=== PATIENT | female | born 1965 | race American Indian/Alaskan Native ===

== ENCOUNTER 2016-09-04 11:44 | Emergency (ER) | payer SELFPAY ==
[2016-09-04] MEDS ORDERED: DUONEB 0.5 MG-3 MG/3 ML SOLN IH ONE ×3 (11:58→13:02)
[2016-09-04] MEDS ORDERED: DECADRON IM ONE (13:02)
[2016-09-04] MEDS ORDERED: PROVENTIL IH ONE (13:02)
--- NOTE | 2016-09-04 13:08 | Emergency Department Report ---
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 Patient states she has history of asthma but has not used inhaler in over a year. patient states she has started a new job where she has to work around a lot of boxes and dust which exacerbates her asthma. Patient states she was at work today around a lot of dust when symptoms started. Patient also states she has a dry cough x1 day with wheezing. Patient is stable, neurologically intact and in no acute distress. MD Complaint: "asthma attack", shortness of breath, wheezing -: Gradual Asthma History: other (history of asthma with albuterol usage) Severity: mild Context: ran out of meds, medication non-compliance, allergen exposure Associated Symptoms: dry cough. denies: productive cough, fever, chest pain, leg edema, syncope Treatments Prior to Arrival: other (patient recieved breathing treatment while in triage) - Related Data Previous Rx's Medication Instructions Recorded Last Taken Type Cyclobenzaprine [Flexeril 10mg] 10 mg PO TID PRN #14 tablet 01/07/14 Unknown Rx HYDROcodone/APAP 7.5-325 [[place] 1 each PO Q6HR PRN #14 tablet 01/07/14 Unknown Rx 7.5-325 mg TAB] Ibuprofen [Motrin] 800 mg PO Q8H PRN #20 tablet 01/07/14 Unknown Rx Amoxicillin/K Clav Tab [Augmentin 1 tab PO Q12HR #20 tab 02/27/15 Unknown Rx 875 mg] Fluticasone [Flonase] 2 spray NS QDAY #01 bottle 02/27/15 Unknown Rx Hyoscyamine Subl [Levsin Sl 0.125 0.125 mg SL Q6HR PRN #20 tab 02/27/15 Unknown Rx TAB] Loratadine [Claritin] 10 mg PO DAILY #30 tablet 02/27/15 Unknown Rx Promethazine /Codeine 5 ml PO Q6H PRN #150 ml 02/27/15 Unknown Rx [Phenergan/Codeine 6.25-10 mg/5 ml] ALBUTEROL Inhaler [ProAir HFA 1 puff IH QID PRN #1 inha 09/04/16 Unknown Rx Inhaler] Allergies Allergy/AdvReac Type Severity Reaction Status Date / Time No Known Allergies Allergy Unverified 01/07/14 10:30 ED Review of Systems ROS: Stated complaint: ALLERGIC REACTION Other details as noted in HPI Constitutional: denies: chills, fever Eyes: denies: eye pain, eye discharge, vision change ENT: denies: ear pain, throat pain Respiratory: cough, shortness of breath, wheezing Cardiovascular: denies: chest pain, palpitations Endocrine: no symptoms reported Gastrointestinal: denies: abdominal pain, nausea, diarrhea Genitourinary: denies: urgency, dysuria, discharge Musculoskeletal: denies: back pain, joint swelling, arthralgia Skin: denies: rash, lesions Neurological: denies: headache, weakness, paresthesias Psychiatric: denies: anxiety, depression Hematological/Lymphatic: denies: easy bleeding, easy bruising ED Past Medical Hx - Past Medical History Hx Asthma: Yes Additional medical history: Vaginal delivery x 2 - Social History Smoking Status: Current Some Day Smoker Substance Use Type: Alcohol - Medications Home Medications: Home Medications Medication Instructions Recorded Confirmed Last Taken Type Cyclobenzaprine [Flexeril 10mg] 10 mg PO TID PRN #14 tablet 01/07/14 Unknown Rx HYDROcodone/APAP 7.5-325 [[place] 1 each PO Q6HR PRN #14 tablet 01/07/14 Unknown Rx 7.5-325 mg TAB] Ibuprofen [Motrin] 800 mg PO Q8H PRN #20 tablet 01/07/14 Unknown Rx Amoxicillin/K Clav Tab [Augmentin 1 tab PO Q12HR #20 tab 02/27/15 Unknown Rx 875 mg] Fluticasone [Flonase] 2 spray NS QDAY #01 bottle 02/27/15 Unknown Rx Hyoscyamine Subl [Levsin Sl 0.125 0.125 mg SL Q6HR PRN #20 tab 02/27/15 Unknown Rx TAB] Loratadine [Claritin] 10 mg PO DAILY #30 tablet 02/27/15 Unknown Rx Promethazine /Codeine 5 ml PO Q6H PRN #150 ml 02/27/15 Unknown Rx [Phenergan/Codeine 6.25-10 mg/5 ml] ALBUTEROL Inhaler [ProAir HFA 1 puff IH QID PRN #1 inha 09/04/16 Unknown Rx Inhaler] ED Physical Exam - General Limitations: No Limitations General appearance: alert, in no apparent distress - Head Head exam: Present: atraumatic, normocephalic - Eye Eye exam: Present: normal appearance - ENT ENT exam: Present: mucous membranes moist - Neck Neck exam: Present: normal inspection - Respiratory Respiratory exam: Present: normal lung sounds bilaterally. Absent: respiratory distress, wheezes, rales, rhonchi, stridor, decreased breath sounds - Cardiovascular Cardiovascular Exam: Present: regular rate, normal rhythm. Absent: systolic murmur, diastolic murmur, rubs, gallop - GI/Abdominal GI/Abdominal exam: Present: soft, normal bowel sounds - Extremities Exam Extremities exam: Present: normal inspection - Back Exam Back exam: Present: normal inspection - Neurological Exam Neurological exam: Present: alert, oriented X3 - Psychiatric Psychiatric exam: Present: normal affect, normal mood - Skin Skin exam: Present: warm, dry, intact, normal color. Absent: rash ED Course Vital Signs 09/04/16 09/04/16 09/04/16 11:53 12:09 12:29 Temperature 98.4 F Pulse Rate 96 H Pulse Rate [ 91 H Posterior Bilateral Throughout] Respiratory 26 H Rate Respiratory 22 18 Rate [Posterior Bilateral Throughout] Blood Pressure 153/94 Blood Pressure [Left] O2 Sat by Pulse 100 Oximetry 09/04/16 09/04/16 09/04/16 13:19 14:15 14:24 Temperature Pulse Rate 109 H Pulse Rate [ 92 H 112 H Posterior Bilateral Throughout] Respiratory 22 Rate Respiratory 18 18 Rate [Posterior Bilateral Throughout] Blood Pressure Blood Pressure 107/65 [Left] O2 Sat by Pulse 99 Oximetry 09/04/16 14:57 Temperature Pulse Rate 96 H Pulse Rate [ Posterior Bilateral Throughout] Respiratory 18 Rate Respiratory Rate [Posterior Bilateral Throughout] Blood Pressure Blood Pressure [Left] O2 Sat by Pulse 97 Oximetry ED Medical Decision Making - Radiology Data Radiology results: report reviewed Chest 2 view: Trachea, heart, mediastinal contour, lung bradley and bony thorax are unremarkable. Unremarkable chest xray. - Medical Decision Making 50 year old female presents to ED with asthma exacerbation. Patient is stable, neurologically intact and in no acute distress. Patient states she feels much better after steroids and 2 breathing treatments. patient will follow up with PCP this week and will be given RX for albuterol upon discharge. Critical care attestation.: If time is entered above; I have spent that time in minutes in the direct care of this critically ill patient, excluding procedure time. ED Disposition Clinical Impression: Asthma exacerbation, mild Disposition: DISCHARGED TO HOME OR SELFCARE Is pt being admited?: No Does the pt Need Aspirin: No Condition: Stable Instructions: Asthma (ED) Prescriptions: ALBUTEROL Inhaler [ProAir HFA Inhaler] 1 puff IH QID PRN #1 inha PRN Reason: Allergy Symptoms Referrals: PRIMARY CARE,MD [Primary Care Provider] - 2-3 Days Forms: Work/School Release Form(ED)
--- NOTE | 2016-09-04 13:49 | XRay Report ---
ROUTINE CHEST, TWO VIEWS: HISTORY: Shortness of breath, asthma. The trachea, heart, mediastinal contour, lung bradley and bony thorax are unremarkable. IMPRESSION: Unremarkable chest x-ray.
[2016-09-04] MEDS ORDERED: DUONEB 0.5 MG-3 MG/3 ML SOLN IH SCH (14:00)
[2016-09-04 14:25] VITALS: BP 107/65
== END 2016-09-04 15:17 | disposition home or self-care (01) ==
LOC: ED 11:44
DX: J45.901 Unspecified asthma with (acute) exacerbation (principal); F17.200 Nicotine dependence, unspecified, uncomplicated
CPT/HCPCS: 71020; 94640; 96372; 99283; J1100

== ENCOUNTER 2017-08-10 09:26 | Emergency (ER) | payer OTHER ==
[2017-08-10 09:46] VITALS: BP 136/90
[2017-08-10] MEDS ORDERED: MUCINEX ER PO ONE (11:59)
[2017-08-10] MEDS ORDERED: TESSALON PERLES PO ONE (11:59)
[2017-08-10] MEDS ORDERED: TORADOL IM ONE (11:59)
--- NOTE | 2017-08-10 12:01 | Emergency Department Report ---
Chief Complaint: Upper Respiratory Infection Stated Complaint: FLU LIKE SYMPTOMS Time Seen by Provider: 08/10/17 11:43 - HPI History of Present Illness: The patient is a 51-year-old female presents for evaluation of cough and thoracic pain. The patient reports 4 days of a nonproductive cough, associated with generalized myalgias and bilateral rib pain, aching in quality, exacerbated with coughing, improved at rest. The patient denies hemoptysis, syncope, dyspnea, neck stiffness, dysphagia, stridor, drooling, difficulty tolerating secretions, dysphonia, hoarseness of voice, abdominal pain. - Exam Vital Signs: Vital Signs 08/10/17 09:43 Temperature 98.7 F Pulse Rate 99 H Respiratory 16 Rate Blood Pressure 136/90 O2 Sat by Pulse 93 Oximetry MSE screening note: Focused history and physical exam performed. Due to findings the following was ordered: ED Disposition for MSE Condition: Stable Referrals: PRIMARY CARE, [Primary Care Provider] - 3-5 Days
--- NOTE | 2017-08-10 12:37 | Emergency Department Report ---
Minor Respiratory - HPI Chief Complaint: Upper Respiratory Infection Stated Complaint: FLU LIKE SYMPTOMS Time Seen by Provider: 08/10/17 11:43 Duration: 5 Days Pain Location: Other (body aches and sinus pain) Severity: severe (8 out of 10 bodyache and 4-10 sinus pain and a can.) Minor Respiratory: Yes Rhinorrhea (nasal congestion), Yes Able to Tolerate Fluids, Yes Cough (dry cough with postnasal drip), Yes Fever (yesterday and chills today), No Sore Throat, No Ear Pain, No Sick Contacts, No Hemoptysis, No Chest Pain, No Shortness of Breath Other History: Patient here reports that she's been having flulike symptoms over the last 5 days. She is reported and body aches 8 out of 10 and sinus pain 4 out of 10. Reports hot flashes fever, chills feeling weak. Positive cough and with drainage of the back of her throat. Denies any shortness of breath or chest pain. Denies any nausea or vomiting. She says she took over- the-counter medication for cough and cold which did not help. 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 Triage vital signs are stable without any fever. ED Review of Systems ROS: Stated complaint: FLU LIKE SYMPTOMS Other details as noted in HPI Comment: All other systems reviewed and negative Constitutional: chills, fever Eyes: denies: eye pain ENT: congestion. denies: ear pain, throat pain, dental pain, hearing loss Respiratory: cough. denies: orthopnea, shortness of breath, SOB with exertion, SOB at rest, stridor, wheezing Cardiovascular: denies: chest pain, palpitations, dyspnea on exertion, orthopnea , edema, syncope, paroxysmal nocturnal dyspnea Gastrointestinal: denies: abdominal pain, nausea, vomiting, diarrhea, constipation, hematemesis, melena, hematochezia Musculoskeletal: myalgia. denies: back pain, joint swelling, arthralgia Skin: denies: rash Neurological: denies: headache ED Past Medical Hx - Past Medical History Previous Medical History?: Yes Hx Asthma: Yes Additional medical history: Vaginal delivery x 2 - Surgical History Past Surgical History?: No - Family History Family history: hypertension - Social History Smoking Status: Current Every Day Smoker Substance Use Type: Alcohol - Medications Home Medications: Home Medications Medication Instructions Recorded Confirmed Last Taken Type Cyclobenzaprine [Flexeril 10mg] 10 mg PO TID PRN #14 tablet 01/07/14 Unknown Rx HYDROcodone/APAP 7.5-325 [[place] 1 each PO Q6HR PRN #14 tablet 01/07/14 Unknown Rx 7.5-325 mg TAB] Ibuprofen [Motrin] 800 mg PO Q8H PRN #20 tablet 01/07/14 Unknown Rx Hyoscyamine Subl [Levsin Sl 0.125 0.125 mg SL Q6HR PRN #20 tab 02/27/15 Unknown Rx TAB] Loratadine [Claritin] 10 mg PO DAILY #30 tablet 02/27/15 Unknown Rx Promethazine /Codeine 5 ml PO Q6H PRN #150 ml 02/27/15 Unknown Rx [Phenergan/Codeine 6.25-10 mg/5 ml] ALBUTEROL Inhaler [ProAir HFA 1 puff IH QID PRN #1 inha 09/04/16 Unknown Rx Inhaler] Amoxicillin/K Clav Tab [Augmentin 1 tab PO Q12HR #20 tab 08/10/17 Unknown Rx 875MG TAB] Benzonatate [Tessalon Perle] 100 mg PO Q8H PRN #15 capsule 08/10/17 Unknown Rx Cetirizine HCl [ZyrTEC] 10 mg PO QAM 14 Days #14 capsule 08/10/17 Unknown Rx Fluticasone [Flonase] 2 spray NS QDAY #1 bottle 08/10/17 Unknown Rx Ibuprofen [Motrin] 600 mg PO Q8H PRN #15 tablet 08/10/17 Unknown Rx Minor Respiratory Exam - Exam General: Vital signs noted. No distress. Alert and acting appropriately. This is a 51-year-old female well-nourished well-developed in no acute distress. HEENT: Yes Moist Mucous Membranes (uvula midline and oral airways patent), Yes Rhinorrhea (positive nasal congestion and erythema), Yes Maxillary Tenderness, No Pharyngeal Erythema, No Pharyngeal Exudates, No Conjuctival Injection, No Frontal Tenderness Ear: Neither TM Bulge (positive congestion), Neither TM Erythema, Neither EAC Pain, Neither EAC Discharge Neck: Yes Supple (full range of motion), No Adenopathy Lungs: Yes Good Air Exchange, Yes Cough (dry cough), No Wheezes, No Ronchi, No Stridor, No Labored Respirations, No Retractions, No Use of Accessory Muscles, No Other Abnormal Lung Sounds Heart: Yes Regular (S1, S2.), No Murmur Abdomen: Yes Normal Bowel Sounds, No Tenderness (nontender the palpation in all quadrants), No Peritoneal Signs Skin: No Rash, No Edema Neurologic: Alert and oriented 3. GCS of 15, speech is clear and fluid and no facial drooping. Normal gait Musculoskeletal: Unremarkable. Extremity: NO clubbing, cyanosis or edema. +2 pulses all extremities and no neurovascular compromise ED Course Vital Signs 08/10/17 09:43 Temperature 98.7 F Pulse Rate 99 H Respiratory 16 Rate Blood Pressure 136/90 O2 Sat by Pulse 93 Oximetry - Reevaluation(s) Reevaluation #1: 08/10/17 14:07 Patient received Toradol 30 mg IM, Mucinex ER 600 mg by mouth and Tessalon Perles 100 mg by mouth for pain, congestion and coughing. 08/10/17 14:07 Patient is able to tolerate oral liquids in the emergency room without any difficulties. ED Medical Decision Making - Radiology Data Radiology results: image reviewed interpreted by me: Chest x-ray reviewed and no acute cardiopulmonary findings seen. Preliminary results pending - Medical Decision Making ED Course: Patient here found to have acute sinusitis, upper respiratory cough and congestion. Chest x-ray reveals no acute cardiopulmonary findings. She was given Tessalon Perles 100 mg by mouth, Mucinex ER decision milligrams by mouth for cough and congestion. She is also given Toradol 30 mg IM in emergency room which relieved her body ache and sinus pain. I discussed the patient diagnosis and treatment plan. She'll be treated with antibiotic because she has fever and her maxillary sinuses are tender to palpate. 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 Critical care attestation.: If time is entered above; I have spent that time in minutes in the direct care of this critically ill patient, excluding procedure time. ED Disposition Clinical Impression: Upper respiratory infection with cough and congestion, Musculoskeletal pain Sinusitis, acute Qualifiers: Sinusitis location: maxillary Recurrence: not specified as recurrent Qualified Code(s): J01.00 - Acute maxillary sinusitis, unspecified Disposition: DC-01 TO HOME OR SELFCARE Is pt being admited?: No Does the pt Need Aspirin: No Condition: Stable Instructions: Musculoskeletal Pain (ED), Acute Cough (ED), Upper Respiratory Infection (ED), Sinusitis (ED) Additional Instructions: Please increase her fluid intake Flush nostrils with saline nasal spray take antibiotic as prescribed F/U with primary care physician as instructed and if you do not have a primary care follow-up with outside Medical Center. Prescriptions: Amoxicillin/K Clav Tab [Augmentin 875MG TAB] 1 tab PO Q12HR #20 tab Benzonatate [Tessalon Perle] 100 mg PO Q8H PRN #15 capsule PRN Reason: Cough Cetirizine HCl [ZyrTEC] 10 mg PO QAM 14 Days #14 capsule Fluticasone [Flonase] 2 spray NS QDAY #1 bottle Ibuprofen [Motrin] 600 mg PO Q8H PRN #15 tablet PRN Reason: Pain Referrals: PRIMARY CARE, [Primary Care Provider] - 2-3 Days [facility] [Outside] - 2-3 Days Forms: Work/School Release Form(ED)
--- NOTE | 2017-08-10 17:12 | XRay Report ---
FINAL REPORT EXAM: XR CHEST ROUTINE 2V HISTORY: chest pain TECHNIQUE: 2 view examination of the chest PRIORS: None FINDINGS: There is no visible pulmonary consolidation, pleural effusion, or pneumothorax. Cardiac silhouette size is normal without vascular congestion. No visible acute displaced fracture in the regional skeleton. IMPRESSION: No evidence of acute cardiopulmonary disease
== END 2017-08-10 14:26 | disposition home or self-care (01) ==
LOC: ED 09:26
DX: J06.9 Acute upper respiratory infection, unspecified (principal); J01.00 Acute maxillary sinusitis, unspecified; M79.1 Myalgia; I10 Essential (primary) hypertension; J45.909 Unspecified asthma, uncomplicated; F17.200 Nicotine dependence, unspecified, uncomplicated
CPT/HCPCS: 71046; 96372; 99283; J1885